=== PATIENT | female | born 1995 | race Caucasian/White ===

== ENCOUNTER 2018-03-14 18:49 | Emergency (ER) | payer OTHER ==
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
[2018-03-14 19:46] LABS: BASOPHILS % 0.3 (0.0-1.5); EOSINOPHILS % 1.3 % (0.0-6.8); MEAN CORPUSCULAR VOLUME 91.5 fl (80.0-100.0); MONOCYTES % 3.3 % (0.0-11.0); NEUTROPHILS # 5.6 # k/uL (1.4-7.7)
[2018-03-14 20:27] LABS: eGFR (Non-African) > 60
[2018-03-14] MEDS: DEXAMETHASONE SOD PHOS 4 MG/ML VIAL IVP ONE (22:11)
[2018-03-14] MEDS: KETOROLAC TROMETHAMINE 30 MG/1ML VIAL IM ONE ×2 (22:11→22:12)
[2018-03-14 22:37] VITALS: BP 130/77
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
== END 2018-03-14 22:23 | disposition home or self-care (01) ==
LOC: ED 18:49
DX: M54.2 Cervicalgia (principal); M54.5 Low back pain; M25.512 Pain in left shoulder; R10.9 Unspecified abdominal pain; S09.90XA Unspecified injury of head, initial encounter; V89.2XXA Person injured in unspecified motor-vehicle accident, traffic, initial encounter; Y92.9 Unspecified place or not applicable; Y93.9 Activity, unspecified; Y99.9 Unspecified external cause status
CPT/HCPCS: 70450; 72125; 72131; 73030; 74177; 80053; 85025; J1100; J1885; 96372; 96374; 99284; Q9967; S1016